=== PATIENT | female | born 1950 | race Two or more races ===

== ENCOUNTER 2020-02-28 07:13 | Day surgery (SDC) | payer OTHER ==
[~2020-02-28 07:13] MED LIST: ATACAND HCT 161 EACH PO; CRESTOR5 MG PO; GABAP PO; GORDON'S VITE A75 GM PO
== END 2020-02-28 18:15 | disposition home or self-care (01) ==
LOC: CIR.AMB 07:13
PROVIDERS: ATTEND Obstetrics & Gynecology
DX: N93.8 Other specified abnormal uterine and vaginal bleeding (principal)

== ENCOUNTER 2022-07-08 09:42 | Day surgery (SDC) | payer OTHER ==
[~2022-07-08 09:42] MED LIST changes: +LYRICA150 MG PO; +PROTONIX40 MG PO
[2022-07-08] MEDS ORDERED: MORGIDOX100 MG PO (12:58)
[2022-07-08] MEDS ORDERED: NAPR500T14 PO (12:58)
== END 2022-07-08 17:05 | disposition home or self-care (01) ==
LOC: CIR.AMB 09:42
PROVIDERS: ATTEND Obstetrics & Gynecology
DX: N84.0 Polyp of corpus uteri (principal); N88.2 Stricture and stenosis of cervix uteri; D25.9 Leiomyoma of uterus, unspecified; N95.0 Postmenopausal bleeding; Z20.822 Contact with and (suspected) exposure to COVID-19; I10 Essential (primary) hypertension; Z91.013 Allergy to seafood